=== PATIENT | male | born 1970 | race Caucasian/White ===

== ENCOUNTER → 2017-08-11 | Outpatient (CLI) | payer OTHER ==
[~2017-08-11] MED LIST: IBUPROFEN 200200 M1 PO
== END ==
LOC: M.MRI 17:02
DX: S83.231A Complex tear of medial meniscus, current injury, right knee, initial encounter (principal); X58.XXXA Exposure to other specified factors, initial encounter; Y93.89 Activity, other specified; Y92.89 Other specified places as the place of occurrence of the external cause; Y99.8 Other external cause status

== ENCOUNTER → 2017-09-02 | Day surgery (SDC) | payer OTHER ==
--- NOTE | 2017-09-12 07:32 | OP ---
[address] [address] OPERATIVE REPORT Name: YULIYA BOSCH Room: [facility]#: [id number] Admission: 09/02/17 Attend Phys: Chad Jacinto, Discharge: Date of : 66 Report #: [id number] THIS REPORT FOR: //name// CC: Fredy Jacinto DICTATED BY: Ghanshyam Boyd DO DATE OF SERVICE: 09/02/2017 PREOPERATIVE DIAGNOSIS: Right knee pain with degenerative medial meniscus tear noted on MRI. POSTOPERATIVE DIAGNOSES: 1. Right knee complex posterior horn medial meniscus tear. 2. 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 PROCEDURE: 1. Right knee arthroscopy. 2. Right knee partial medial meniscectomy. 2. Right knee chondroplasty, medial femoral condyle. SURGEON: Chad Jacinto DO PHARMACEUTICAL BOTANIST: Ghanshyam Boyd DO ANESTHESIA: General. ESTIMATED BLOOD LOSS: Minimal, less than 5 mL. ANTIBIOTICS: 2 grams Ancef IV preoperatively. SPECIMENS: None. COMPLICATIONS: None. DISPOSITION: Stable to PACU and will be discharged to home from PACU. INDICATION FOR PROCEDURE: The patient is a pleasant 46-year-old male who is seen in Orthopedic Clinic with complaints of right knee pain and has been having pain for multiple months. Does note occasional feelings of catching and locking of the right knee. Referred pain to the medial aspect of his right knee. We obtained an MRI. There was concern for medial meniscus tear, which displayed a complex posterior horn medial meniscus tear. Recommendations were made for right knee arthroscopy with partial medial meniscectomy. All risks, benefits, complications, indications, alternatives were discussed. [place] [address] OPERATIVE REPORT Name: YULIYA BOSCH Room: [facility]#: [id number] Admission: 09/02/17 Attend Phys: Chad Jacinto, Discharge: Date of : 66 Report #: [id number] proceed with surgery today. DESCRIPTION OF PROCEDURE: The patient was seen in preoperative holding area. Correct operative site, right knee was initialed. The patient was taken back to the operating suite, placed in supine position on the operating table, given benefit of general anesthetic. A well-padded tourniquet was then placed to the right upper thigh and right knee was placed in the arthroscopic knee duncan in the typical fashion. Right lower extremity was then prepped and draped in typical fashion. Surgery began with a timeout, identifying correct patient, correct procedure, correct operative site, preoperative antibiotics and correct surgeon. Next, a standard anterolateral portal was established by making a roughly 1 cm horizontal incision through the skin and inserting the blunt camera trocar into the knee followed by the arthroscopic camera. Next, thorough diagnostic knee arthroscopy was performed identifying the previously mentioned findings noted in the postoperative diagnosis. There was evidence of a complex posterior horn tear with a significant flap that seemed to be able to displace into the medial compartment. There was also a flap of cartilage noted on the weightbearing portion of the medial femoral condyle. Next, the patellofemoral and lateral compartments seemed rather unremarkable during this exam. Next, the anterior medial portal was established under direct visualization using spinal needle technique. Skin was incised with 15 blade scalpel. Blunt trocar was then inserted into the medial compartment followed by a probe to significantly probe both the cartilage flap and complex posterior horn medial meniscus tear. Sufficient arthroscopic pictures were taken of the knee, documenting no overt findings. Next, using combination of arthroscopic biters and a 3.5 arthroscopic shaver, the posterior horn medial meniscus tear was taken back to stable edges. Also, a chondroplasty was performed of the medial femoral condyle taking the cartilage flap back to stable edges with the arthroscopic shaver. Next, a debridement of the ligamentum mucosum was performed. ACL was felt to be stable and intact and the knee was again thoroughly irrigated and arthroscopic fluid was exsanguinated at this time. Next, injection was performed of 4 mL of 1% lidocaine and 1 mL of 40 mg Kenalog. Next, arthroscopic camera was removed and the portal incisions were closed in a simple interrupted fashion with 4-0 nylon suture. Standard dressings were applied consisting of Xeroform, 4 x 4s, Kerlix and a 6-inch Mando bandage. The patient was weaned from general anesthetic, transferred in stable condition to PACU and will be discharged to home from the PACU. <ELECTRONICALLY SIGNED> By: Rashad Medina DO 09/12/17 0732 0930 [id number] Jacinto DO /jenny
== END | disposition home or self-care (01) ==
LOC: M.SUR 06:02
DX: M23.221 Derangement of posterior horn of medial meniscus due to old tear or injury, right knee (principal); M94.261 Chondromalacia, right knee

== ENCOUNTER 2018-12-25 17:00 | Emergency (ER) | payer OTHER ==
[~2018-12-25] VITALS: Ht 190.5 cm; Wt 113.4 kg
[2018-12-25] MEDS ORDERED: ARICEPT 5 MG TAB5 MG PO (17:12)
[2018-12-25 17:36] LABS: URINE BILIRUBIN NEGATIVE (Negative); URINE BLOOD NEGATIVE (Negative); URINE CLARITY CLEAR; URINE COLOR YELLOW; URINE GLUCOSE-RANDOM NEGATIVE (Negative); URINE KETONES NEGATIVE (Negative); URINE LEUKOCYTES-REFLEX NEGATIVE (Negative); URINE NITRITE-REFLEX NEGATIVE (Negative); URINE PROTEIN NEGATIVE (Negative); URINE UROBILINOGEN 0.2 E.U./dl (0.2-1.0)
[2018-12-25 17:37] LABS: ABSOLUTE EOSINOPHILS 0.1 thou/uL (0.0-0.7); ABSOLUTE LYMPHOCYTES 0.9 thou/uL (0.8-5.3); ABSOLUTE MONOCYTES 0.1 thou/uL (0.0-1.2); BASOPHILS 0.3 %; EOSINOPHILS 2.1 %; HEMATOCRIT 47.5 % (42.0-52.0); HEMOGLOBIN 15.9 gm/dL (14.0-18.0); LYMPHOCYTES 14.9 %; MCH 29.6 pg (26.0-34.0); MCHC 33.4 g/dL (28.0-37.0); MCV 88.8 fL (80.0-100.0); MONOCYTES 1.3 %; MPV 7.1 fl. (7.2-11.1); NUCLEATED RBCS 0 /100WBC; PLATELET COUNT* 330 thou/uL (150-400); POLYS 81.4 %; RBC 5.35 mil/uL (4.50-6.00); RDW-CV 13.6 % (10.5-14.5); WBC 6.2 thou/uL (4.0-11.0)
[2018-12-25 17:45] LABS: ANION GAP 11 mmol/L (7-16); BUN 14 mg/dL (7-18); CALCIUM 8.6 mg/dL (8.5-10.1); CHLORIDE 104 mmol/L (98-107); CO2 22 mmol/L (21-32); CREATININE 1.1 mg/dL (0.6-1.3); GLUCOSE 118 mg/dL (70-99); POTASSIUM 3.8 mmol/L (3.5-5.1); SODIUM 137 mmol/L (136-145)
[2018-12-25 17:54] LABS: ALBUMIN 3.8 g/dL (3.4-5.0); ALKALINE PHOSPHATASE 119 U/L (46-116); LIPASE 76 U/L (73-393); SGOT 20 U/L (15-37); SGPT 29 U/L (30-65); TOTAL BILIRUBIN 0.8 mg/dL (<0.1-1.0); TOTAL PROTEIN 7.5 g/dL (6.4-8.2); TROPONIN-I LEVEL <0.06 ng/mL (<0.06)
[2018-12-25] MEDS ORDERED: ONDANSETRON HCL4 M2 PO (18:27)
[2018-12-25] MEDS ORDERED: LOMOTIL 2.5-0.01 TAB PO (18:27)
[2018-12-25] MEDS ORDERED: BENTYL 20 MG TA20 M1 PO (18:37)
[2018-12-25 18:47] VITALS: BP 104/58
--- NOTE | 2018-12-26 15:39 | EKG ---
[place] [address] ELECTROCARDIOGRAM REPORT Name: YULIYA BOSCH Room: [facility]#: [id number] Admission: 12/25/18 Attend Phys: Discharge: 12/25/18 Date of : 66 Report #: [id number] THIS REPORT FOR: //name// [facility] ED Test Date: 2018-12-25 Test Time: 17:14:25 Pat Name: YULIYA BOSCH Department: Room: Gender: Final Expense Agent: Mukund LUCERO : 1970 Requested By: Velia Quiñonez Order Number: [id number] MD: Paco Cramer Measurements Intervals [place] Rate: 86 P: 35 MO: 169 QRS: 29 QRSD: 76 T: 33 QT: 328 QTc: 393 Interpretive Statements Sinus rhythm RSR' in V1 or V2, right VCD or RVH Baseline wander in lead(s) V1,V3 No previous ECG available for comparison Electronically Signed On 12-26-2018 15:39:35 CDT by Paco Cramer [email or web address] <ELECTRONICALLY SIGNED> By: Paco Cramer MD, [facility] 12/26/18 1539 1714 1714 Paco Cramer MD, [facility] /EPI
== END 2018-12-25 18:48 | disposition home or self-care (01) ==
LOC: M.ERS 17:00
PROVIDERS: Nurse Practitioner Family
DX: K52.9 Noninfective gastroenteritis and colitis, unspecified (principal); Z87.891 Personal history of nicotine dependence

== ENCOUNTER → 2019-03-14 | Outpatient (CLI) | payer OTHER ==
[~2019-03-14] MED LIST changes: +ARICEPT 5 MG TAB5 MG PO; +BENTYL 20 MG TA20 M1 PO; +LOMOTIL 2.5-0.01 TAB PO; +ONDANSETRON HCL4 M2 PO
== END ==
LOC: M.MRI 16:55
DX: S83.241A Other tear of medial meniscus, current injury, right knee, initial encounter (principal); M17.11 Unilateral primary osteoarthritis, right knee; M71.21 Synovial cyst of popliteal space [Baker], right knee; X58.XXXA Exposure to other specified factors, initial encounter; Y93.89 Activity, other specified; Y92.89 Other specified places as the place of occurrence of the external cause; Y99.8 Other external cause status